=== PATIENT | female | born 1970 | race Caucasian/White ===

== ENCOUNTER 2017-03-25 10:34 | Emergency (ER) | payer MEDICAID, OTHER ==
[~2017-03-25] VITALS: Ht 157.5 cm; Wt 82.5 kg
[2017-03-25 10:42] VITALS: Ht 157.5 cm; Wt 82.5 kg
[2017-03-25] MEDS ORDERED: ONDANSETRON (ODT) 4 MG TAB ODT STA (11:11)
--- NOTE | 2017-03-25 11:25 | ERD ---
ER Documentation Chief Complaint Date/Time DATE: 03/25/17 TIME: 11:24 Chief Complaint Pt with cough X 2 months and AP, diarrhea and vomiting X 3 days. HPI 46-year-old female recently treated for pertussis presents with cough for 2 months, also comes with diarrhea and vomiting for the past 3 days. She states she has had a dry cough and has felt fatigued from this. She has been treated by her primary care doctor for pertussis and just completed the 5 day course of azithromycin about 1 week ago. She subsequently developed diarrhea that has resolved after 3 days. She reports nausea vomiting associated with a cough. There is no hemoptysis, fevers or chills. ROS All systems reviewed and are negative except as per history of present illness. Medications Home Meds Active Scripts Prednisone* (Prednisone*) 20 Mg Tab, 40 MG PO DAILY for 4 Days, TAB Prov:JOSE LUIS SOLANO PA-C 03/25/17 Benzonatate* (Tessalon Perle*) 100 Mg Capsule, 100 MG PO Q8H Y for COUGH, #30 CAP Prov:JOSE LUIS SOLANO PA-C 03/25/17 PMhx/Soc History of Surgery: No Hx Miscellaneous Medical Probl: Yes (Hypertension) Hx Alcohol Use: No Hx Substance Use: No Hx Tobacco Use: No Physical Exam Vitals Vital Signs Date Time Temp Pulse Resp B/P Pulse Ox O2 Delivery O2 Flow Rate FiO2 03/25/17 13:19 98.3 84 18 156/76 99 Room Air 03/25/17 10:42 97.7 72 18 184/88 99 Physical Exam General: Well-developed, well-nourished. The patient appears in no acute distress. HEENT: Head is normocephalic, atraumatic. No scleral icterus. Pupils are equal , round, and reactive. Oral mucous membranes are moist. No pharyngeal erythema. Neck: Supple. Nontender. Lungs: Clear to auscultation. Normal air movement. Heart: Regular rate and rhythm. S1 and S2 are normal. No murmurs, gallops, or rubs. Abdomen: Soft, nontender, nondistended. Bowel sounds are normoactive. Extremities: No clubbing or cyanosis. Normal pulses. Moving extremities x 4. No weakness. Neurologic: Alert and oriented 3. No focal deficits. Skin: Normal turgor. No rash or lesions. Result Diagram: 03/25/17 1130 03/25/17 1130 Results 24 hrs Laboratory Tests Test 03/25/17 11:27 03/25/17 11:30 Urine Color STRAW Urine Clarity CLEAR Urine pH 6.0 Urine Specific [place] 1.008 Urine Ketones NEGATIVEmg/dL Urine Nitrite NEGATIVEmg/dL Urine Bilirubin NEGATIVEmg/dL Urine Urobilinogen NEGATIVEmg/dL Urine Leukocyte Esterase NEGATIVELeu/ul Urine Hemoglobin NEGATIVEmg/dL Urine Glucose NEGATIVEmg/dL Urine Total Protein NEGATIVEmg/dl White Blood Count 7.210^3/ul Red Blood Count 4.1310^6/ul Hemoglobin 12.7g/dl Hematocrit 37.5% Mean Corpuscular Volume 90.8fl Mean Corpuscular Hemoglobin 30.8pg Mean Corpuscular Hemoglobin Concent 33.9g/dl Red Cell Distribution Width 12.1% Platelet Count 23393^3/UL Mean Platelet Volume 8.9fl Neutrophils % 59.7% Lymphocytes % 29.2% Monocytes % 7.1% Eosinophils % 3.1% Basophils % 0.6% Nucleated Red Blood Cells % 0.0/100WBC Neutrophils # 4.310^3/ul Lymphocytes # 2.110^3/ul Monocytes # 0.510^3/ul Eosinophils # 0.210^3/ul Basophils # 0.010^3/ul Nucleated Red Blood Cells # 0.010^3/ul Sodium Level 141mmol/L Potassium Level 3.9mmol/L Chloride Level 101mmol/L Carbon Dioxide Level 27mmol/L Anion Gap 17 Blood Urea Nitrogen 12mg/dl Creatinine 0.61mg/dl Glucose Level 87mg/dl Calcium Level 8.5mg/dl Total Bilirubin 0.3mg/dl Direct Bilirubin 0.00mg/dl Indirect Bilirubin 0.3mg/dl Aspartate Amino Transf (AST/SGOT) 27IU/L Alanine Aminotransferase (ALT/SGPT) 30IU/L Alkaline Phosphatase 62IU/L Total Protein 7.6g/dl Albumin 4.2g/dl Globulin 3.40g/dl Albumin/Globulin Ratio 1.23 Lipase 104U/L Current Medications Medications (Trade) Dose Ordered Sig/Candi Route PRN Reason Start Time Stop Time Status Last Admin Dose Admin Ondansetron HCl (Zofran Odt) 4 mg ONCE STAT ODT 03/25/17 11:11 03/25/17 11:15 DC 03/25/17 11:26 DIAGNOSTIC IMAGING REPORT Patient: ANN MARIE RUBIO : 1970 Age: 46 Sex: F MR #: [id number] DOS: 03/25/17 1125 Ordering MD: JOSE LUIS SOLANO PA-C Location: [facility] Room/Bed: PROCEDURE: XR Chest. CLINICAL INDICATION: Cough x 2 months, treated for pertussis TECHNIQUE: PA and Lateral views of the chest were obtained. COMPARISON: None. FINDINGS: The cardiomediastinal silhouette is within normal limits. The lungs are clear. No signs of pleural fluid or pneumothorax are seen. The osseous structures and soft tissues are unremarkable. IMPRESSION: No evidence for active cardiopulmonary disease. RPTAT: PP Physician Cassie Date Time Electronically viewed and signed by Cassie Diaz Physician on 03/25/2017 12: 10 RC/ CC: JOSE LUIS SOLANO PA-C Procedures/MDM 46-year-old female comes in with a cough for 2 months as well as vomiting and diarrhea. Patient states that she was recently treated for pertussis. She had a chest x-ray performed in the emergency room today without evidence of pneumonia. Cough appears to be post pertussis, as expected. She does not have any fever, hemoptysis, suspicion for tuberculosis is low. She also comes in with fatigue that is likely related to her recent diagnosis. She took antibiotics about a week ago and reports she had diarrhea for 3 days that resolved, this is likely due to taking the antibiotics she no longer has any further diarrhea. She reports vomiting that is associated with cough. Basic labs obtained, there is no leukocytosis, no electrolyte abnormalities and urine was negative for infection. Patient is nontoxic and stable for outpatient management. Departure Diagnosis: Primary Impression: Cough Additional Impressions: Vomiting and diarrhea Pertussis Condition: Good JOSE LUIS SOLANO PA-C Mar 25, 2017 11:25
[2017-03-25 11:56] LABS: BASOPHILS % 0.6 % (0.0-2.0); EOSINOPHILS # 0.2 10^3/ul (0.0-0.5); EOSINOPHILS % 3.1 % (0.0-7.0); HEMATOCRIT 37.5 % (37.0-47.0); HEMOGLOBIN 12.7 g/dl (12.0-16.0); LYMPHOCYTES # 2.1 10^3/ul (0.8-2.9); LYMPHOCYTES % 29.2 % (15.0-51.0); MEAN CORPUSCULAR HEMOGLOBIN 30.8 pg (29.0-33.0); MEAN CORPUSCULAR HGB CONC 33.9 g/dl (32.0-37.0); MEAN CORPUSCULAR VOLUME 90.8 fl (82.0-101.0); MEAN PLATELET VOLUME 8.9 fl (7.4-10.4); MONOCYTE # 0.5 10^3/ul (0.3-0.9); MONOCYTES % 7.1 % (0.0-11.0); NEUTROPHIL # 4.3 10^3/ul (1.6-7.5); NEUTROPHILS % 59.7 % (39.0-77.0); PLATELET COUNT 350 10^3/UL (140-415); RED BLOOD COUNT 4.13 10^6/ul (4.20-5.40); RED CELL DISTRIBUTION WIDTH 12.1 % (11.5-14.5); WHITE BLOOD COUNT 7.2 10^3/ul (4.8-10.8)
[2017-03-25 11:59] LABS: ADD UMIC NO; UR ASCORBIC ACID NEGATIVE (NEGATIVE); UR BILIRUBIN (Dip) NEGATIVE (NEGATIVE); UR BLOOD (Dip) NEGATIVE (NEGATIVE); UR CLARITY CLEAR (CLEAR); UR COLOR STRAW (YELLOW); UR GLUCOSE (Dip) NEGATIVE (NEGATIVE); UR KETONES (Dip) NEGATIVE (NEGATIVE); UR LEUKOCYTE ESTERASE (Dip) NEGATIVE Leu/ul (NEGATIVE); UR NITRITE (Dip) NEGATIVE (NEGATIVE); UR SPECIFIC GRAVITY (Dip) 1.008 (1.003-1.030); UR TOTAL PROTEIN (Dip) NEGATIVE (NEGATIVE); UR UROBILINOGEN (Dip) NEGATIVE (NEGATIVE)
--- NOTE | 2017-03-25 12:10 | RADRPT ---
PROCEDURE: XR Chest. CLINICAL INDICATION: Cough x 2 months, treated for pertussis TECHNIQUE: PA and Lateral views of the chest were obtained. COMPARISON: None. FINDINGS: The cardiomediastinal silhouette is within normal limits. The lungs are clear. No signs of pleural f luid or pneumothorax are seen. The osseous structures and soft tissues are unremarkable. IMPRESSION: No evidence for active cardiopulmonary disease. RPTAT: PP Physician Cassie Date Time Electronically viewed and signed by Cassie Diaz Physician on 03/25/2017 12:10 RC/
[2017-03-25 12:21] LABS: ALBUMIN 4.2 g/dl (3.3-4.9); ALBUMIN/GLOBULIN RATIO 1.23; BILIRUBIN,INDIRECT 0.3 mg/dl (0-1.1); BILIRUBIN,TOTAL 0.3 mg/dl (0.2-1.3); CALCIUM 8.5 mg/dl (8.4-10.2); CREATININE 0.61 mg/dl (0.44-1.00); POTASSIUM 3.9 mmol/L (3.5-5.1); TOTAL PROTEIN 7.6 g/dl (6.1-8.1)
[2017-03-25] MEDS ORDERED: PRED20TA PO (12:41)
[2017-03-25] MEDS ORDERED: BENZ100C70 PO (12:41)
[2017-03-25 13:19] VITALS: BP 156/76; PULSE 84; RESP 18; TEMP 98.3
== END 2017-03-25 13:21 | disposition home or self-care (01) ==
LOC: FTE 10:34
DX: R05 Cough (principal); R11.10 Vomiting, unspecified; R19.7 Diarrhea, unspecified; A37.90 Whooping cough, unspecified species without pneumonia; I10 Essential (primary) hypertension
CPT/HCPCS: 36415; 71020; 80053; 81003; 83690; 85025; Z7502; Z7610